=== PATIENT | female | born 1965 | race Caucasian/White ===

== ENCOUNTER 2017-09-07 08:12 | Day surgery (SDC) | payer SELFPAY ==
[~2017-09-07] VITALS: Ht 165.1 cm; Wt 82.5 kg
[~2017-09-07 08:12] MED LIST: (None)15 GM EXT; ACET325 PO; ADVIL; Atrovent Inha12.9 GM INH; BENZ100A PO; CEPH500; CEPH500 PO; CLIN300 PO; CRUTCH4 USE; DEXA4 PO; DIPH50 PO; DOXY100 PO; HYDACE5 PO; IBUP400 PO; IBUP800 PO; LINE600 PO; NAPR500 PO; PHENTERMINE; PRED10 PO; Pedi-Dri 100,0060 GM; RANI150 PO; SULTRIDS PO; VANC250; [UNRECOGNIZED DRUG - OTHER]
--- NOTE | 2017-09-07 08:47 | NUR ---
Ambulatory in [facility] warming gown applied. Surgical site prepped with 2% Chlorhexidine cloth wipe. Lungs clear T/O to Auscultation. Patient confirms NPO status and agrees with scheduled surgery.
--- NOTE | 2017-09-07 09:06 | NUR ---
Patient States Post-Procedure ride home has been arranged with her daughter.
--- NOTE | 2017-09-07 09:48 | NUR ---
PARTIAL DENTURES OUT AND BROUGHT TO PACU FOR SAFE KEEPING. NOSE RING LEFT IN AND TAPED AND WAIVER SIGNED.
--- NOTE | 2017-09-07 11:57 | NUR ---
Patient up to Ambulate independently. Gait steady. Discharge instructions reviewed with patient. Patient verbalizes understanding. Copy given to patient to take home. Patient States Post-Procedure ride home has been arranged. Discharged via wheelchair to private car for ride home. DRESSING C/D/I. ALL BELONGINGS RETURNED TO PT.
== END 2017-09-07 11:59 | disposition home or self-care (01) ==
LOC: ORSCMMR 08:12
PROVIDERS: Surgery
PROC: 0JH60WZ Insertion of Totally Implantable Vascular Access Device into Chest Subcutaneous Tissue and Fascia, Open Approach (ICD-10-PCS; principal; 2017-09-07 10:00)
DX: C34.32 Malignant neoplasm of lower lobe, left bronchus or lung (principal); C77.1 Secondary and unspecified malignant neoplasm of intrathoracic lymph nodes; C79.31 Secondary malignant neoplasm of brain; F17.210 Nicotine dependence, cigarettes, uncomplicated
CPT/HCPCS: 77001; C1788; J0690; J1642; J2250; J2370; J7120